=== PATIENT | male | born 1935 | race Caucasian/White ===

== ENCOUNTER 2016-10-18 14:15 | Emergency (ER) | payer BC ==
[2016-10-18 13:09] LABS: BASOPHILS 0.2 %; BASOPHILS ABSOLUTE 0.01 10/3/uL (0.0-0.16); EOSINOPHILS 0 %; HEMATOCRIT 40.6 % (40.0-51.0); HEMOGLOBIN 13.6 g/dL (13.6-17.8); IMMATURE GRANULOCYTES 0.2 %; LYMPHOCYTES 15.8 %; LYMPHOCYTES ABSOLUTE 0.89 10/3/uL (0.67-4.30); MEAN CORPUS HGB CONC 33.5 g/dL (32.0-36.0); MEAN CORPUSCULAR HEMOGLOB 33.2 pg (26.0-34.0); MEAN PLATELET VOLUME 11.1 fL (9.2-13.0); MONOCYTES ABSOLUTE 1.47 10/3/uL (0.21-1.20); NEUTROPHILS 57.8 %; NEUTROPHILS ABSOLUTE 3.27 10/3/uL (2.02-8.40); PLATELET COUNT 166 10/3/uL (150-400); RBC DISTRIBUTION WIDTH 14.1 % (12.0-16.0); WHITE BLOOD CELLS 5.7 10/3/uL (4.5-10.5)
[2016-10-18 13:12] LABS: IMMATURE GRANULOCYTES ABSOLUTE 0.01 10/3/uL (0.0-0.11); MANUAL DIFF NO %
[2016-10-18 13:15] LABS: INTERNATIONAL NORMAL RATI 1.2 UNITS (-); PROTIME (NOT ORD) 14.9 SEC (12.0-14.5)
[2016-10-18 13:16] LABS: PARTIAL THROMBO TIME 28.1 SEC (22.5-37.2)
[2016-10-18 13:26] LABS: ALBUMIN 3.3 G/DL (3.5-5.0); ALKALINE PHOSPHATASE 76 U/L (45-117); BUN (BLOOD UREA NITROGEN) 15 MG/DL (6-23); CALCIUM, SERUM 8.5 MG/DL (8.5-10.4); CHEST PAIN PROFILE TAT 0 Hrs 23 Mins; CHLORIDE, SERUM 101 MMOL/L (96-112); CO2 (CARBON DIOXIDE) 28 MMOL/L (24-34); CREATININE 1.02 MG/DL (0.70-1.30); DIRECT BILIRUBIN 0.1 MG/DL (0.0-0.4); GFR AFRICAN AMERICAN 80 ML/MIN (>=60); GFR NON AFRICAN AMERICAN 69 ML/MIN (>=60); GLUCOSE, SERUM 93 MG/DL (60-99); INDIRECT BILIRUBIN(NOT ORDER) 0.8 MG/DL (0.1-0.9); POTASSIUM, SERUM 3.8 MMOL/L (3.5-5.3); SGOT(AST) 24 U/L (5-40); SGPT(ALT) 21 U/L (5-65); SODIUM, SERUM 140 MMOL/L (135-148); TOTAL BILIRUBIN 0.9 MG/DL (0-1.2); TOTAL PROTEIN 7.5 G/DL (6.0-8.5); TROPONIN I <0.02 NG/ML (<0.05)
[2016-10-18 13:31] LABS: B NATRIURETIC PEPTIDE (BNP) 134.7 PG/ML (< 100.0)
[2016-10-18 13:34] LABS: ASCORBIC ACID (UR NOT ORDER) 40 (NEG); BILIRUBIN, URINE NEGATIVE (NEG); ER URINALYSIS TAT 0 Hrs 11 Mins; KETONE, URINE NEGATIVE (NEG); LEUKOCYTE ESTERASE(NOT OR NEG (NEG); NITRITE (URINE) NEG (NEG); WBC (NOT ORDERED) (RFLEX) 1 (0-5)
[2016-10-18 13:49] LABS: BAND NEUTROPHILS 30 %; ER DIFF TAT 0 Hrs 46 Mins; GIANT PLATELET RARE; LYMPHOCYTES 11 %; LYMPHOCYTES ABSOLUTE (CALC) 0.63 10/3/uL (0.67-4.30); MONOCYTES 20 %; MONOCYTES ABSOLUTE (CALC) 1.14 10/3/uL (0.21-1.20); NEUTROPHILS ABSOLUTE (CALC) 3.93 10/3/uL (2.02-8.40); PLATELET ESTIMATE ADQ (ADEQUATE); RBC MORPHOLOGY NORM (NORMAL); SEGMENTED NEUTROPHIL (0) 39 %; TOTAL NUCLEATED CELLS 100
== END 2016-10-18 19:23 | disposition home or self-care (01) ==
LOC: ER 14:15
PROVIDERS: Emergency Medicine
DX: R41.82 Altered mental status, unspecified (principal); R33.9 Retention of urine, unspecified; R50.9 Fever, unspecified; I50.9 Heart failure, unspecified; Z85.46 Personal history of malignant neoplasm of prostate
CPT/HCPCS: 70450; 71010; 74176; 80048; 80076; 81001; 82140; 83735; 83880; 84484; 85025; 85610; 85730; 96374; 99285

== ENCOUNTER 2016-11-15 11:56 | Emergency (ER) | payer BC | END 2016-11-15 12:00 | disposition home or self-care (01) | LOC: ER 11:56 | PROC: 0HQEXZZ Repair Left Lower Arm Skin, External Approach (ICD-10-PCS; principal; 2016-11-15) | DX: S51.012A Laceration without foreign body of left elbow, initial encounter (principal); I10 Essential (primary) hypertension; F03.90 Unspecified dementia, unspecified severity, without behavioral disturbance, psychotic disturbance, mood disturbance, and anxiety; W19.XXXA Unspecified fall, initial encounter | CPT/HCPCS: 70450; 73080-LT; 99284 ==